=== PATIENT | male | born 1970 | race Caucasian/White ===

== ENCOUNTER → 2018-04-14 | Day surgery (SDC) | payer OTHER ==
[~2018-04-14] MED LIST: BACLOFEN20 MG; CYMBALTA30 MG; EXCEDRIN MIGRA1 EAC3; FAMOTIDINE 20 MG/2 ML VIAL IV ONE; FENTANYL CITRATE/PF 100MCG/2 ML INJ ONE; HYOSCYAMINE SULFATE 0.5 MG/ML AMP ONE; LIDOCAINE HCL 2% LOCAL INJ 5 ML SDV VIAL INJ ONE; METHADONE HCL10 MG; METOCLOPRAMIDE HCL 10 MG/2ML VIAL ONE; MIDAZOLAM HCL 2 MG/2 ML VIAL ONE; PROPOFOL IV EMULSION 10 MG/ML 50 ML VIAL ONE; ZIPSOR25 MG
--- NOTE | 2018-04-14 09:25 | Operative Report ---
DATE OF PROCEDURE: April 14, 2018 REFERRING PHYSICIAN: Dr. Bhumi Altman PROCEDURES PERFORMED 1. Esophagogastroduodenoscopy with biopsies. 2. Colonoscopy with polypectomy. INDICATIONS FOR EGD: Acid reflux. INDICATIONS FOR COLONOSCOPY: Colorectal cancer screening. MEDICATION: Patient was done under MAC. Please see anesthesiologist's note. PROCEDURE: With the patient in the left lateral decubitus position, the flexible fiberoptic Olympus gastroscope was introduced into the esophagus under direct visualization without any difficulty. A single erosion was noted in the distal esophagus. There was a nodular and ulcerated area noted at the GE junction that was biopsied. The scope was then advanced with ease into the stomach traversing a small hiatal hernia. Mucosa overlying the antrum and the body revealed some patchy intense erythema and low-grade edema, and biopsies were obtained and sent to stain for H. pylori. The pylorus was of normal contour and shape. It was intubated with ease. The scope was advanced all the way to the 2nd portion of the duodenum. The scope was then withdrawn slowly. Mucosa overlying the proximal 2nd portion and the duodenal bulb appeared to be within normal limits. The scope was then withdrawn back into the stomach and retroflexed. The mucosa overlying the fundus and the cardia appeared to be within normal limits. The scope was then straightened out. It was subsequently withdrawn. Patient tolerated the procedure well. IMPRESSION 1. Erosive esophagitis. 2. Ulcerated nodular, gastroesophageal junction, biopsied. 3. Small hiatal hernia. 4. Gastritis, biopsied. Biopsies sent to stain for Helicobacter pylori. PLAN: Follow up histology. Initiate Protonix 40 mg 1 p.o. q.a m. a.c. Patient was then turned around. After adequate lubrication of the anal canal, a flexible fiberoptic Olympus colonoscope was inserted into the rectum with ease and advanced all the way to the cecum. Prep overall was suboptimal. The scope was then withdrawn slowly, and whatever was visualized of the mucosa overlying the cecum and ascending colon appeared to be within normal limits. There was some scattered diverticular disease noted pretty much throughout. Two polyps were snared from the transverse colon. Two polyps were snared from the descending colon and 3 polyps were snared from the sigmoid colon. The rectum overall appeared to be within normal limits. The scope was then retroflexed into the distal rectum and small internal hemorrhoids were noted, none of which was actively bleeding. The scope was then straightened out. It was subsequently withdrawn. Patient tolerated the procedure well. IMPRESSION 1. Suboptimal prep. 2. Diverticulosis. 3. Transverse colon polyps times 2, snared. 4. Descending colon polyps times 2, snared. 5. Sigmoid colon polyps times 3, snared. 6. Internal hemorrhoids, none actively bleeding. A total of 7 polyps were removed. PLAN: Follow up histology. Initiate high-fiber and low-fat diet. Initiate high-fiber supplement. Patient will need a followup colonoscopy in 3 years. Job#: [id number] RI cc:BHUMI ALTMAN MD
== END | disposition home or self-care (01) ==
LOC: OR 06:13
PROVIDERS: ATTEND Internal Medicine Gastroenterology
DX: Z12.11 Encounter for screening for malignant neoplasm of colon (principal); D12.4 Benign neoplasm of descending colon; D12.5 Benign neoplasm of sigmoid colon; K29.70 Gastritis, unspecified, without bleeding; K22.10 Ulcer of esophagus without bleeding; K21.9 Gastro-esophageal reflux disease without esophagitis; K22.8 Other specified diseases of esophagus; K44.9 Diaphragmatic hernia without obstruction or gangrene; K57.30 Diverticulosis of large intestine without perforation or abscess without bleeding; K64.8 Other hemorrhoids; G89.4 Chronic pain syndrome; G47.30 Sleep apnea, unspecified; J45.909 Unspecified asthma, uncomplicated; Z79.82 Long term (current) use of aspirin
CPT/HCPCS: 43239; 45385; 93005; J1980; J2001; J2250; J2765